=== PATIENT | female | born 1995 | race Caucasian/White ===

== ENCOUNTER 2021-01-16 18:12 | Emergency (ER) | payer MEDICAID, SELFPAY ==
--- NOTE | 2021-01-16 | ECG_ITS ---
Test Reason : UPPER RESPIRATORY Blood Pressure : / mmHG Vent. Rate : 066 BPM Atrial Rate : 066 BPM P-R Int : 170 ms QRS Dur : 084 ms QT Int : 394 ms P-R-T Axes : 078 058 069 degrees QTc Int : 413 ms Normal sinus rhythm Normal ECG No previous ECGs available Referred By: David Newton Electronically Signed By:RUBÉN LOGAN MD
--- NOTE | ~2021-01-16 | XR_ITS ---
EXAMINATION: XR CHEST CLINICAL INFORMATION: Chest pain COMPARISON: Chest x-ray March 21, 2018 TECHNIQUE: Frontal portable view of the chest was obtained. 2115 hours FINDINGS: No significant abnormality is noted involving the heart, lungs, mediastinum, bony thorax or soft tissues. XR/XR chest 1V IMPRESSION: Unremarkable examination.
--- NOTE | 2021-01-16 19:15 | PC.NURSE ---
NO RESPONSE WHEN CALLED AT 19:17
[2021-01-16 19:27] VITALS: BP 117/70; PULSE 87; RESP 17; TEMP 36.9; O2SAT 100; BMI 19.1
[2021-01-16 20:05] LABS: COVID-19 Test Negative (Negative)
--- NOTE | 2021-01-16 20:09 | ED_ITS ---
HPI - General Adult General Chief complaint: General Medical Stated complaint: cp, vomitting Time Seen by Provider: 01/16/21 19:46 Source: patient Mode of arrival: ambulatory Limitations: no limitations History of Present Illness HPI narrative: This is a 25 years old female presented to the emergency department with chief complaint of chest pain the pain is pleuritic worse taking a deep breath Onset (ago): day(s) (2) Radiation: non-radiation Severity: mild Pain Consistency: constant Exacerbating factors: other (breathing) Related Data Allergies Allergy/AdvReac Type Severity Reaction Status Date / Time No Known Allergies Allergy Unverified 12/08/19 18:51 [No Known Allergies*] Review of Systems Review of Systems: Yes all other systems are reviewed and are negative Eyes: Eyes: Reports no additional eye complaints Cardiovascular: Cardiovascular: Reports no additional cardiovascular complaints Respiratory: Respiratory: Reports no additional respiratory complaints Gastrointestinal: Gastrointestinal: Reports no additional gastrointestinal complaints Musculoskeletal: Musculoskeletal: Reports no additional musculoskeletal complaints PMFSH Past Medical History Attestation statement: The following information was validated with the patient. Source: unable to obtain Social History Social History Advance Directives: No Patient : No Physical Exam Vital Signs: Vital Signs: Last Vital Signs Temp 98.5 F 01/16/21 19: Pulse 87 01/16/21 19:27 Resp 17 01/16/21 19:27 BP 117/70 01/16/21 19:27 Pulse Ox 100 01/16/21 19:27 Body Mass Index 19.1 Const: General: cooperative, healthy appearing, no acute distress, well developed, awake and Physically active Nutritional Appearance: average body habitus Orientation/consciousness: oriented to person HENMT: Head: Yes normal to inspection Face and sinus: Yes normal facial exam Mouth: Normal oral and palatal mucosa present Teeth and gingiva: dentition normal Throat: Yes posterior oropharynx normal Neck: Neck: Yes normal visual inspection, Yes full ROM and Yes no lymphadenopathy Thyroid: Thyroid normal Chest: Chest palpation & inspection: normal inspection of the chest Resp: Effort & Inspection: normal respiratory effort and able to speak in complete sentences Auscultation: clear to auscultation bilaterally Cardio: Palpation: normal PMI Rate: regular rate Rhythm: regular rhythm GI: Inspection: Yes normal to inspection Palpation (GI): Soft to palpation, not firm, nontender, no guarding and not rigid Skin: General skin exam: no rashes or lesions noted, elasticity normal, turgor normal and atrophy Lesions: no lesions Rashes: no rashes Neuro: General: oriented to person Medical Decision Making Lab Data Result diagrams: 01/16/21 20:20 01/16/21 20:20 Labs: Lab Results 01/16/21 01/16/21 01/16/21 Range/Units 19:40 20:20 20:20 WBC 9.5 (4.8-10.8) X10*3/uL RBC 4.10 L (4.20-5.50) X10*6/uL Hgb 12.8 (12.0-16.0) g/dl Hct 38.0 (37-47) % MCV 92.7 (80-98) fL MCH 31.2 (27.0-33.0) pg MCHC 33.7 (31.0-35.0) g/dl RDW 12.0 (11.0-16.0) % Plt Count 335 (160-400) X10*3/uL MPV 10.0 (9.4-12.3) fL Immature Gran % (Auto) 0.2 (0.0-0.4) % Neut % (Auto) 64.4 (45-73) % Lymph % (Auto) 26.1 (20-40) % [place] % (Auto) 6.9 (2-11) % Eos % (Auto) 1.9 (0-4) % Baso % (Auto) 0.5 (0-2) % Lymph # (Auto) 2.5 (1.2-4.9) X10*3/uL [place] # (Auto) 0.7 (0.1-1.2) X10*3/uL Eos # (Auto) 0.2 (0.0-0.4) X10*3/uL Baso # (Auto) 0.1 (0.0-0.2) X10*3/uL Abs Immat Gran (auto) 0.02 (0.00-0.03) X10*3/uL Absolute Neuts (auto) 6.1 (2.0-8.3) X10*3/uL Absolute Nucleated RBC 0.000 (0.0-0.012) X10*3/uL Nucleated RBC % (auto) 0.0 (0.0-0.2) /100WBC D-Dimer < 200 NG/ML Sodium (135-145) mmol/L Potassium (3.3-5.1) mmol/L Chloride (96-108) mmol/L Carbon Dioxide (22-29) mmol/L Anion Gap (12-20) BUN (9-16) mg/dL Creatinine (0.5-1.4) mg/dL Estim Creat Clear Calc Estimated GFR Random Glucose (60-115) mg/dL Calcium (8.4-10.2) mg/dL Total Bilirubin (0.0-1.0) mg/dL AST (5-31) U/L ALT (0-31) U/L Alkaline Phosphatase (39-117) U/L Troponin I High Sens (<3.5-17.0) ng/L Total Protein (6.5-8.0) g/dL Albumin (3.5-5.0) g/dL COVID-19 ([facility]) Negative (Negative) COVID-19 Clin Com See Note 01/16/21 01/16/21 Range/Units 20:20 20:20 WBC (4.8-10.8) X10*3/uL RBC (4.20-5.50) X10*6/uL Hgb (12.0-16.0) g/dl Hct (37-47) % MCV (80-98) fL MCH (27.0-33.0) pg MCHC (31.0-35.0) g/dl RDW (11.0-16.0) % Plt Count (160-400) X10*3/uL MPV (9.4-12.3) fL Immature Gran % (Auto) (0.0-0.4) % Neut % (Auto) (45-73) % Lymph % (Auto) (20-40) % [place] % (Auto) (2-11) % Eos % (Auto) (0-4) % Baso % (Auto) (0-2) % Lymph # (Auto) (1.2-4.9) X10*3/uL [place] # (Auto) (0.1-1.2) X10*3/uL Eos # (Auto) (0.0-0.4) X10*3/uL Baso # (Auto) (0.0-0.2) X10*3/uL Abs Immat Gran (auto) (0.00-0.03) X10*3/uL Absolute Neuts (auto) (2.0-8.3) X10*3/uL Absolute Nucleated RBC (0.0-0.012) X10*3/uL Nucleated RBC % (auto) (0.0-0.2) /100WBC D-Dimer NG/ML Sodium 138 (135-145) mmol/L Potassium 4.0 (3.3-5.1) mmol/L Chloride 106 (96-108) mmol/L Carbon Dioxide 23 (22-29) mmol/L Anion Gap 13 (12-20) BUN 8 L (9-16) mg/dL Creatinine 0.77 (0.5-1.4) mg/dL Estim Creat Clear Calc 77.7 Estimated GFR > 60 Random Glucose 80 (60-115) mg/dL Calcium 9.1 (8.4-10.2) mg/dL Total Bilirubin 0.9 (0.0-1.0) mg/dL AST 15 (5-31) U/L ALT 8 (0-31) U/L Alkaline Phosphatase 71 (39-117) U/L Troponin I High Sens < 3.5 (<3.5-17.0) ng/L Total Protein 7.2 (6.5-8.0) g/dL Albumin 4.3 (3.5-5.0) g/dL COVID-19 ([facility]) (Negative) COVID-19 Clin Com Imaging Data Chest x-ray: Radiologist's impression: [facility] [place] cc: Ori Daly MD~ EXAMINATION: XR CHEST CLINICAL INFORMATION: Chest pain COMPARISON: Chest x-ray March 21, 2018 TECHNIQUE: Frontal portable view of the chest was obtained. 2115 hours FINDINGS: No significant abnormality is noted involving the heart, lungs, mediastinum, bony thorax or soft tissues. XR/XR chest 1V IMPRESSION: Unremarkable examination. ? Dictated By: GISSELLE LANDERS MD Signed By: <Electronically signed by GISSELLE LANDERS MD in OV> 01/16/212131 DD/ 07 TD/TT:? Java Swing Developer ECG Data Attestation: I personally reviewed and interpreted this ECG as follows: Prior ECG tracings: available for review Pacemaker model: NSR 66 no ischemic changes Discharge Plan Discharge Clinical Impression: Chest pain Patient Disposition: Home, Self-Care Instructions: Chest Pain (ED) Additional Instructions: Please follow-up with your primary care physician the blood work was normal your chest x-ray was negative you chest pain is not cardiac Referrals: Ale Alvarez MD [Primary Care Provider] - 2 days Interventions: LWBS Worksheet Last Done: 01/16/21 18:57
[2021-01-16 20:24] LABS: MANUAL DIFF FLAG NO
[2021-01-16 20:27] LABS: Basophils Absolute Auto 0.1 X10*3/uL (0.0-0.2); Basophils Percent Auto 0.5 % (0-2); Eosinophils Absolute Auto 0.2 X10*3/uL (0.0-0.4); Eosinophils Percent Auto 1.9 % (0-4); Hemoglobin 12.8 g/dl (12.0-16.0); Imm Gran Abs Auto 0.02 X10*3/uL (0.00-0.03); Imm Gran Pct Auto 0.2 % (0.0-0.4); Lymphocytes Absolute Auto 2.5 X10*3/uL (1.2-4.9); Lymphocytes Percent Auto 26.1 % (20-40); Mean Corpuscular HGB Conc 33.7 g/dl (31.0-35.0); Mean Corpuscular Hemoglobin 31.2 pg (27.0-33.0); Mean Corpuscular Volume 92.7 fL (80-98); Monocytes Absolute Auto 0.7 X10*3/uL (0.1-1.2); Monocytes Percent Auto 6.9 % (2-11); Neutrophils Absolute Auto 6.1 X10*3/uL (2.0-8.3); Neutrophils Percent Auto 64.4 % (45-73); Platelet Count 335 X10*3/uL (160-400); White Blood Count 9.5 X10*3/uL (4.8-10.8)
[2021-01-16 20:37] LABS: D Dimer < 200 NG/ML
[2021-01-16 20:39] LABS: Alanine Aminotransferase 8 U/L (0-31); Albumin Level 4.3 g/dL (3.5-5.0); Alkaline Phosphatase 71 U/L (39-117); Anion Gap 13 (12-20); Aspartate Amino Transferase 15 U/L (5-31); Bilirubin Total 0.9 mg/dL (0.0-1.0); Blood Urea Nitrogen 8 mg/dL (9-16); Calcium 9.1 mg/dL (8.4-10.2); Carbon Dioxide 23 mmol/L (22-29); Chloride 106 mmol/L (96-108); Creatinine Clr Calc Pharmacy 77.7; Estimated Glomerular Filt Rate > 60; Glucose Random 80 mg/dL (60-115); Sodium 138 mmol/L (135-145); Total Protein 7.2 g/dL (6.5-8.0)
[2021-01-16 20:45] LABS: Troponin-I High Sensitivity < 3.5 ng/L (<3.5-17.0)
== END 2021-01-16 22:30 | disposition home or self-care (01) ==
PROVIDERS: Emergency Medicine; Emergency Provider Emergency Medicine; PCP Internal Medicine
DX: R07.9 Chest pain, unspecified (principal); Z20.822 Contact with and (suspected) exposure to COVID-19
CPT/HCPCS: 36415; 71045; 80053; 84484; 85025; 85379; 87635; 93005; 99283

== ENCOUNTER 2022-03-21 17:54 | Emergency (ER) | payer MEDICAID, SELFPAY ==
[2022-03-21 19:40] VITALS: BP 101/39; PULSE 79; RESP 20; TEMP 36.6; O2SAT 99; BMI 18.7
--- NOTE | 2022-03-21 19:41 | ED.SKABFB ---
HPI - Skin/Abscess/Foreign Bdy General Chief complaint: Skin/Abscess/Foreign Body <Tawana Lopez CNP - Last Filed: 03/25/22 18:13> Stated complaint: abdominal pain <Tawana Lopez CNP - Last Filed: 03/25/22 18:13> Time Seen by Provider: 03/22/22 01:31 <Tawana Lopez CNP - Last Filed: 03/25/22 18:13> Source: patient <Dipesh Alcala MD - Last Filed: 03/26/22 01:35> Mode of arrival: ambulatory <Dipesh Alcala MD - Last Filed: 03/26/22 01:35> Limitations: no limitations <Dipesh Alcala MD - Last Filed: 03/26/22 01:35> History of Present Illness HPI narrative: Not work drainage in a clinical <Dipesh Alcala MD - Last Filed: 03/26/22 01:35> Related Data Home medications: Previous Rx's Medication Instructions Recorded cefuroxime axetil 500 mg tablet 500 mg PO BID #20 tabs 03/22/22 doxycycline hyclate 100 mg tablet 100 mg PO BID #20 tabs 03/22/22 fluconazole 150 mg tablet 150 mg PO Q3D 2 doses #2 tabs 03/24/22 (Diflucan) metronidazole 500 mg tablet 500 mg PO BID 7 days #14 tabs 03/24/22 <Tawana Lopez CNP - Last Filed: 03/25/22 18:13> Allergies/Adverse reactions: Allergies Allergy/AdvReac Type Severity Reaction Status Date / Time No Known Allergies Allergy Verified 03/21/22 19:45 [No Known Allergies*] <Tawana Lopez CNP - Last Filed: 03/25/22 18:13> PMFSH Social History Social History: Social History Alcohol intake: current Alcohol intake frequency: holidays/special occasions only Smoked in Last 30 Days: No Use of substances other than those prescribed or required for medical reasons: No Advance Directives: No Advance Directives Information Provided: No Patient : No <Tawana Lopez CNP - Last Filed: 03/25/22 18:13> Physical Exam Vital Signs: Vital Signs: Last Vital Signs Temp 98.2 F 03/22/22 01:04 Pulse 61 03/22/22 01:04 Resp 18 03/22/22 01:04 BP 99/55 L 03/22/22 01:04 Pulse Ox 99 03/22/22 01:04 O2 Del Method 03/22/22 01:04 BMI result Body Mass Index 18.7 <Tawana Lopez CNP - Last Filed: 03/25/22 18:13> Vital Signs: Last Vital Signs Temp 98.2 F 03/22/22 01:04 Pulse 61 03/22/22 01:04 Resp 18 03/22/22 01:04 BP 99/55 L 03/22/22 01:04 Pulse Ox 99 03/22/22 01:04 O2 Del Method 03/22/22 01:04 BMI result Body Mass Index 18.7 <Dipesh Alcala MD - Last Filed: 03/26/22 01:35> Course Course Course Narrative: This is an RME: Additional HPI, ROS, PE not included below will be deferred to primary provider. Patient is a 26-year-old female who presents emergency department for evaluation of cyst to the bilateral buttock with onset approximately 1 week ago. States that one of them opened yesterday and drain, the other has not had drained, they are painful. Reports a history of abscesses requiring incision and drainage in the past. Also reporting vaginal itching and discomfort since this morning. Denies dysuria, possibility of . Recent new sexual parnet 3 weeks ago. Plan: Will require ct/ng, urinalysis, urine , bacterial vaginosis panel, and examination <Tawana Lopez CNP - Last Filed: 03/25/22 18:13> Medications Administered Discontinued Medications Generic Name Dose Route Start Last Admin Trade Name Freq PRN Reason Stop Dose Admin Cefuroxime Axetil 500 mg 03/22/22 01:32 03/22/22 01:51 Cefuroxime Axetil 250 Mg Tablet PO 03/22/22 01:33 500 mg ONCE ONE Administration Doxycycline Monohydrate 100 mg 03/22/22 01:44 03/22/22 01:51 Doxycycline Monohydrate 100 Mg Capsule PO 03/22/22 01:45 100 mg ONCE ONE Administration <Tawana Lopez CNP - Last Filed: 03/25/22 18:13> Medications Administered Discontinued Medications Generic Name Dose Route Start Last Admin Trade Name Daryl PRN Reason Stop Dose Admin Cefuroxime Axetil 500 mg 03/22/22 01:32 03/22/22 01:51 Cefuroxime Axetil 250 Mg Tablet PO 03/22/22 01:33 500 mg ONCE ONE Administration Doxycycline Monohydrate 100 mg 03/22/22 01:44 03/22/22 01:51 Doxycycline Monohydrate 100 Mg Capsule PO 03/22/22 01:45 100 mg ONCE ONE Administration <Dipesh Alcala MD - Last Filed: 03/26/22 01:35> Medical Decision Making Lab Data Labs: Lab Results 03/21/22 03/21/22 03/21/22 Range/Units 20:09 20:09 20:09 Urine Color Yellow Urine Appearance Turbid Urine pH 6.0 (5.0-9.0) Ur Specific [place] 1.010 (1.005-1.025) Urine Protein Negative (Neg-Trace) mg/dL Urine Glucose (UA) Negative (Negative) mg/dL Urine Ketones Negative (Negative) mg/dL Urine Blood Trace H (Negative) Urine Nitrite Negative (Negative) Ur Leukocyte Esterase Large (3+) H (Negative) Urine RBC 3-5 H (0-2) /HPF Urine WBC 21-50 H (0-5) /HPF Ur Squamous Epith Cells >20 (0-2) /HPF Urine Bacteria 4+ (None Seen) Hyaline Casts 0-2 (0-2) /LPF Urine Test NEGATIVE (NEGATIVE) Azra species DNA (Negative) Chlam trachomat DNA PCR DETECTED A (Not Detect.) [place] DNA Probe (Negative) N.gonorrhoeae DNA (PCR) NOT DETECTED (Not Detect.) Trichomonas DNA Probe (Negative) 03/21/22 Range/Units 20:09 Urine Color Urine Appearance Urine pH (5.0-9.0) Ur Specific [place] (1.005-1.025) Urine Protein (Neg-Trace) mg/dL Urine Glucose (UA) (Negative) mg/dL Urine Ketones (Negative) mg/dL Urine Blood (Negative) Urine Nitrite (Negative) Ur Leukocyte Esterase (Negative) Urine RBC (0-2) /HPF Urine WBC (0-5) /HPF Ur Squamous Epith Cells (0-2) /HPF Urine Bacteria (None Seen) Hyaline Casts (0-2) /LPF Urine Test (NEGATIVE) Azra species DNA Positive A (Negative) Chlam trachomat DNA PCR (Not Detect.) Gardnerella DNA Probe Positive A (Negative) N.gonorrhoeae DNA (PCR) (Not Detect.) Trichomonas DNA Probe Negative (Negative) <Tawana Lopez, KEILA - Last Filed: 03/25/22 18:13> Lab Results 03/21/22 03/21/22 03/21/22 Range/Units 20:09 20:09 20:09 Urine Color Yellow Urine Appearance Turbid Urine pH 6.0 (5.0-9.0) Ur Specific [place] 1.010 (1.005-1.025) Urine Protein Negative (Neg-Trace) mg/dL Urine Glucose (UA) Negative (Negative) mg/dL Urine Ketones Negative (Negative) mg/dL Urine Blood Trace H (Negative) Urine Nitrite Negative (Negative) Ur Leukocyte Esterase Large (3+) H (Negative) Urine RBC 3-5 H (0-2) /HPF Urine WBC 21-50 H (0-5) /HPF Ur Squamous Epith Cells >20 (0-2) /HPF Urine Bacteria 4+ (None Seen) Hyaline Casts 0-2 (0-2) /LPF Urine Test NEGATIVE (NEGATIVE) Azra species DNA (Negative) Chlam trachomat DNA PCR DETECTED A (Not Detect.) [place] DNA Probe (Negative) N.gonorrhoeae DNA (PCR) NOT DETECTED (Not Detect.) Trichomonas DNA Probe (Negative) 03/21/22 Range/Units 20:09 Urine Color Urine Appearance Urine pH (5.0-9.0) Ur Specific [place] (1.005-1.025) Urine Protein (Neg-Trace) mg/dL Urine Glucose (UA) (Negative) mg/dL Urine Ketones (Negative) mg/dL Urine Blood (Negative) Urine Nitrite (Negative) Ur Leukocyte Esterase (Negative) Urine RBC (0-2) /HPF Urine WBC (0-5) /HPF Ur Squamous Epith Cells (0-2) /HPF Urine Bacteria (None Seen) Hyaline Casts (0-2) /LPF Urine Test (NEGATIVE) Arza species DNA Positive A (Negative) Chlam trachomat DNA PCR (Not Detect.) [place] DNA Probe Positive A (Negative) N.gonorrhoeae DNA (PCR) (Not Detect.) Trichomonas DNA Probe Negative (Negative) <Dipesh Alcala MD - Last Filed: 03/26/22 01:35> Discharge Plan Discharge Clinical Impression: Abscess of skin or subcutaneous tissue, UTI (urinary tract infection) <Tawana Lopez CNP - Last Filed: 03/25/22 18:13> Patient Disposition: Home, Self-Care <Tawana Lopez CNP - Last Filed: 03/25/22 18:13> Instructions: Urinary Tract Infection in Women (ED), Abscess (ED) <Tawana Lopez CNP - Last Filed: 03/25/22 18:13> Additional Instructions: Take antibiotic as prescribed Report to ER if increased in the size of the abscess At this time size of abscess is very small and does not need incision and drainage <Tawana Lopez CNP - Last Filed: 03/25/22 18:13> Prescriptions: New cefuroxime axetil 500 mg tablet 500 mg PO BID Qty: 20 0RF doxycycline hyclate 100 mg tablet 100 mg PO BID Qty: 20 0RF metronidazole 500 mg tablet 500 mg PO BID 7 Days Qty: 14 0RF fluconazole [Diflucan] 150 mg tablet 150 mg PO Q3D Qty: 2 0RF Rx Instructions: may repeat second dose 72 hrs after first dose if symptoms persist <Tawana Lopez CNP - Last Filed: 03/25/22 18:13> Interventions: ED Discharge Assessment Last Done: 03/22/22 02:04 <Tawana Lopez CNP - Last Filed: 03/25/22 18:13> Discharge Date/Time: 03/22/22 02:05 <Tawana Lopez CNP - Last Filed: 03/25/22 18:13>
[2022-03-21 20:18] LABS: Appearance Urine Turbid; Color Urine Yellow; Glucose Urine UA Negative (Negative); Leukocyte Esterase Urine Large (3+) (Negative); Nitrite Urine Negative (Negative); UMIC TRIGGER UACC YES; Urine Blood Trace (Negative); Urine Ketones Negative (Negative); Urine Protein Negative (Neg-Trace)
[2022-03-21 20:19] LABS: Urine Pregnancy NEGATIVE (NEGATIVE)
[2022-03-21 20:20] LABS: UPreg QC Valid YES
[2022-03-21 20:34] LABS: Bacteria Urine 4+ (None Seen); Hyaline Casts Urine 0-2 /LPF (0-2); Squamous Epithelial Cell Urine >20 /HPF (0-2); UACC Culture Trigger YES; WBC Urine 21-50 /HPF (0-5)
[2022-03-22 01:04] VITALS: BP 99/55; PULSE 61; RESP 18; TEMP 36.8; O2SAT 99
--- NOTE | 2022-03-22 01:49 | ED.SKABFB ---
HPI - Skin/Abscess/Foreign Bdy General Chief complaint: Skin/Abscess/Foreign Body Stated complaint: abdominal pain Time Seen by Provider: 03/22/22 01:31 Source: patient Mode of arrival: ambulatory Limitations: no limitations History of Present Illness HPI narrative: Patient complaining of recurrent small abscesses in the gluteal area this time started about 1 week ago also since morning noticed discomfort in vagina without any discharge also denied any urinary complaints no frequency/dysuria no fever or chills Related Data Previous Rx's Medication Instructions Recorded cefuroxime axetil 500 mg tablet 500 mg PO BID #20 tabs 03/22/22 doxycycline hyclate 100 mg tablet 100 mg PO BID #20 tabs 03/22/22 Allergies Allergy/AdvReac Type Severity Reaction Status Date / Time No Known Allergies Allergy Verified 03/21/22 19:45 [No Known Allergies*] Review of Systems Review of Systems: Yes all other systems are reviewed and are negative [facility] Social History Social History Alcohol intake: current Alcohol intake frequency: holidays/special occasions only Smoked in Last 30 Days: No Use of substances other than those prescribed or required for medical reasons: No Advance Directives: No Advance Directives Information Provided: No Patient : No Physical Exam Vital Signs: Vital Signs: Last Vital Signs Temp 98.2 F 03/22/22 01:04 Pulse 61 03/22/22 01:04 Resp 18 03/22/22 01:04 BP 99/55 L 03/22/22 01:04 Pulse Ox 99 03/22/22 01:04 O2 Del Method 03/22/22 01:04 BMI result Body Mass Index 18.7 Appearance: Alert. Oriented X3. No acute distress. ENT: Pharynx normal. Oral Mucosa moist Neck: Normal inspection. Neck supple. CVS: Normal heart rate and rhythm. Pulses normal. Respiratory: No respiratory distress. Equal air entry bilateral, no wheezing/rales/rhonchi abd: Soft nontender no CVA tenderness as palpable Skin: Skin warm and dry. Normal skin color. Small 0.5 x 0.5 cm abscess in the right gluteal area clinically MRSA Extremities: No lower extremity edema. Neuro: Oriented X 3. Medical Decision Making Medical Decision Making MDM Narrative: Patient with staph abscesses very small in size discharge patient home on doxycycline also patient has UTI will give her Ceftin sample for GC chlamydia was taken Lab Data MDM Lab Attestation statement: I reviewed the patient's lab results. Labs: Lab Results 03/21/22 03/21/22 Range/Units 20:09 20:09 Urine Color Yellow Urine Appearance Turbid Urine pH 6.0 (5.0-9.0) Ur Specific [place] 1.010 (1.005-1.025) Urine Protein Negative (Neg-Trace) mg/dL Urine Glucose (UA) Negative (Negative) mg/dL Urine Ketones Negative (Negative) mg/dL Urine Blood Trace H (Negative) Urine Nitrite Negative (Negative) Ur Leukocyte Esterase Large (3+) H (Negative) Urine RBC 3-5 H (0-2) /HPF Urine WBC 21-50 H (0-5) /HPF Ur Squamous Epith Cells >20 (0-2) /HPF Urine Bacteria 4+ (None Seen) Hyaline Casts 0-2 (0-2) /LPF Urine Test NEGATIVE (NEGATIVE) Discharge Plan Discharge Clinical Impression: Abscess of skin or subcutaneous tissue, UTI (urinary tract infection) Patient Disposition: Home, Self-Care Instructions: Urinary Tract Infection in Women (ED), Abscess (ED) Additional Instructions: Take antibiotic as prescribed Report to ER if increased in the size of the abscess At this time size of abscess is very small and does not need incision and drainage Prescriptions: New cefuroxime axetil 500 mg tablet 500 mg PO BID Qty: 20 0RF doxycycline hyclate 100 mg tablet 100 mg PO BID Qty: 20 0RF
[2022-03-22] MEDS: Doxycycline Monohydrate 100 MG CAPSULE PO (01:51)
[2022-03-22 10:19] LABS: CT PCR DETECTED (Not Detect.); NG PCR NOT DETECTED (Not Detect.)
[2022-03-22 14:33] LABS: BV Int Neg Control Negative (Negative); BV Int Pos Control Positive (Positive)
== END 2022-03-22 02:05 | disposition home or self-care (01) ==
PROVIDERS: Nurse Practitioner Family; Emergency Provider Internal Medicine
DX: L02.31 Cutaneous abscess of buttock (principal); N39.0 Urinary tract infection, site not specified; N89.8 Other specified noninflammatory disorders of vagina; Z79.899 Other long term (current) drug therapy
CPT/HCPCS: 81001; 81025; 87086; 87088; 87480; 87491; 87510; 87591; 87660; 99283; 99284

== ENCOUNTER 2022-10-08 12:38 | Outpatient (REF) | payer MEDICAID, SELFPAY ==
[2022-10-09 13:56] LABS: CT PCR NOT DETECTED (Not Detect.); NG PCR NOT DETECTED (Not Detect.)
== END 2022-10-08 12:39 | disposition home or self-care (01) ==
LOC: HO.HHCL 12:38
PROVIDERS: Visit Provider Internal Medicine
DX: N30.01 Acute cystitis with hematuria (principal); Z20.2 Contact with and (suspected) exposure to infections with a predominantly sexual mode of transmission
CPT/HCPCS: 0353U; 87086

== ENCOUNTER 2023-01-31 15:54 | Emergency (ER) | payer MEDICAID, SELFPAY ==
[2023-01-31 16:05] VITALS: BP 103/62; PULSE 81; RESP 18; TEMP 36.2; O2SAT 100; BMI 20.2
--- OUTSIDE RECORDS SUMMARY | 2023-01-31 18:03 | XMS_ITS | Continuity of Care Document ---
Author Name Unknown Organization [facility] Address [address] [place] [id number] Care Team Providers Care Drapery Counselor Name Role Phone Kim ABERNATHY, Ale Cary Primary Care Physician Encounter [facility] [place] Date(s): 06/10/21 - 07/10/[address] [id number]- Allergies, Adverse Reactions, Alerts No Known Medication Allergies Immunizations Given and Recorded Vaccine Date Status Refusal Reason SARS-CoV-2 (COVID-19) mRNA BNT-162b2 vac 11/07/20 Recorded SARS-CoV-2 (COVID-19) mRNA BNT-162b2 vac 10/17/20 Recorded Measles/Mumps/Rubella Virus Vaccine 10/05/19 Recor ded tetanus/diphtheria/pertussis, acel(Tdap) 07/25/16 Recorded influenza virus vaccine, inactivated 05/10/15 Guicho rded Medications Folic Acid Daily, 0 Refills, Maintenance, 03/11/21 14:07:00 EST, Partial fill upon patient request if the prescription is for a schedule II opioid drug. Start Date: 03/11/21 Status: Ordered Macrobid = 100 mg, By Mouth, 2 times a day, 0 Refills, Maintenance, 08/06/16 14:44:34 Start Date: 08/06/16 Stop Date: 08/09/16 Status: Ordered Miconazole 7 vaginal cream with applicator 1 application, Vaginally, Daily at bedtime, Acute, # 45 Gm, 0 Refills, Maintenance, 03/12/21 14:27:00 EST, Partial fill upon patient request if the prescription is for a schedule II opioid drug. Start Date: 03/12/21 Status: Ordered Multivitamins with Folic Acid 1 mg oral tablet 1 tablet, By Mouth, Daily, # 90 tablet, 3 Refills, Maintenance, 05/02/21 15:59:00 EST, Tablet, [facility]/pharmacy #[id number], Partial fill upon patient request if the prescription is for a schedule II opioid drug., 1 tablet By Mouth Daily, 152, cm, 04/04/21 18:3... Start Date: 05/02/21 Status: Ordered Problem List Condition Effective Dates Status Health Status Inform ant History of (Confirmed) Active Migraines(Confirmed) Active Social History Social History Type Response Smoking Status Never (less than 100 in lifetime) entered on: 02/25/21 Sex
--- OUTSIDE RECORDS SUMMARY | 2023-01-31 18:03 | XMS_ITS | Continuity of Care Document ---
Author Name Unknown Organization [facility] Address [address] [place] [phone]- Care Team Providers Care Collar Closer Lockstitch Name Role Phone Kim ABERNATHY, Ale Cary Primary Care Physician Encounter [facility] [place] Date(s): 11/04/21 - 12/15/[address] [address]- Attending Physician: Not on Staff, Attending MD Allergies, Adverse Reactions, Alerts No Known Medication Allergies Immunizations Given and Recorded Vaccine Date Status Refusal Reason tetanus/diphtheria/pertussis, acel(Tdap) 07/22/21 Given tetanus/diphtheria/pertussis, acel(Tdap) 07/25/16 Recorded SARS-CoV-2 mRNA (iujidfo-kbge-tmkda) vax 07/22/21 Given influenza virus vaccine, inactivated 07/22/21 Give n influenza virus vaccine, inactivated 05/10/15 Guicho rded SARS-CoV-2 (COVID-19) mRNA BNT-162b2 vac 11/07/20 Recorded SARS-CoV-2 (COVID-19) mRNA BNT-162b2 vac 10/17/20 Recorded Measles/Mumps/Rubella Virus Vaccine 10/05/19 Recor ded Medications acetaminophen 325 mg oral tablet 650 mg, By Mouth, Every 4 hours, (1-3), may give 325mg per patient preference and re-dose with 325mg within 4 hours if needed. Patient should only receive a total of 650mg of Acetaminophen every 4 hours., # 60 tablet, Refills 0, Tot. Refills 0, Main... Start Date: 09/29/21 Status: Ordered Colace sodium 100 mg oral capsule 100 mg, 1, capsule, By Mouth, 2 times a day, PRN, # 100 capsule, Refills 0, Tot. Refills 0, Maintenance, for constipation, 07/22/21 11:19:00 EDT, Route to Pharmacy Electronically, [id number],Partial fill upon patient request if the prescripti... Start Date: 07/22/21 Status: Ordered ferrous sulfate 325 mg oral tablet 1 tablet = 325 mg, By Mouth, Daily, # 90 tablet, 3 Refills, Maintenance, 07/24/21 21:38:00 EDT, Tablet, [id number], Partial fill upon patient request if the prescription is for a schedule II opioid drug., 152, cm, 07/22/21 15:06:00 EDT, Height... Start Date: 07/24/21 Status: Ordered ibuprofen 800 mg oral tablet 800 mg, 1, tablet, By Mouth, Every 8 hours, (4-6), may give 400mg per patient preference and re-dose with 400mg within 8 hours if needed. Patient should only receive a total of 800mg of Ibuprofen every 8 hours., # 60 tablet, Refills 0, Tot. Refills... Start Date: 09/29/21 Status: Ordered oxyCODONE 5 mg oral tablet 5 mg, 1, tablet, By Mouth, Every 3 hours, PRN, (7-10), # 5 tablet, Refills 0, Tot. Refills 0, Maintenance, Pain , Severe, 09/29/21 9:20:00 EDT, Route to Pharmacy Electronically, [id number], Partial fill upon patient request if the prescription... Start Date: 09/29/21 Status: Ordered Multivitamins with Folic Acid 1 mg oral tablet 1 tablet, By Mouth, Daily, # 90 tablet, 3 Refills, Maintenance, 05/02/21 15:59:00 EST, Tablet, [id number], Partial fill upon patient request if the prescription is for a schedule II opioid drug., 1 tablet By Mouth Daily, 152, cm, 04/04/21 18:3... Start Date: 05/02/21 Status: Ordered Problem List Condition Effective Dates Status Health Status Inform ant History of (Confirmed) Active Migraines(Confirmed) Active Social History Social History Type Response Smoking Status Never (less than 100 in lifetime) entered on: 02/25/21 Sex Care Team Personnel Name: Kim ABERNATHY, Ale Cary Address: [address] [place] [address]-
--- OUTSIDE RECORDS SUMMARY | 2023-01-31 18:03 | XMS_ITS | Continuity of Care Document ---
Author Name Unknown Organization [facility] Address [address] [place] [address]- Care Team Providers Care Alterations Workroom Clerk Name Role Phone Kim ABERNATHY, Ale Cary Primary Care Physician Encounter [facility] [place] Date(s): 08/01/21 - 10/12/[address] [address] Attending Physician: Not on Staff, Attending MD Allergies, Adverse Reactions, Alerts No Known Medication Allergies Immunizations Given and Recorded Vaccine Date Status Refusal Reason tetanus/diphtheria/pertussis, acel(Tdap) 07/22/21 Given tetanus/diphtheria/pertussis, acel(Tdap) 07/25/16 Recorded SARS-CoV-2 mRNA (cyfqsbf-qcif-psmos) vax 07/22/21 Given influenza virus vaccine, inactivated [...] 07/22/21 11:19:00 EDT, Route to Pharmacy Electronically, [facility]/pharmacy #[id number],Partial fill upon patient request if the [...] 09/29/21 9:20:00 EDT, Route to Pharmacy Electronically, [facility]/pharmacy #[id number], Partial fill upon patient request if [...]
--- OUTSIDE RECORDS SUMMARY | 2023-01-31 18:03 | XMS_ITS | Continuity of Care Document ---
Author Name Unknown Organization [facility] Address [address] [place] [address]- Care Team Providers Care Staple Side Laster Name Role Phone Kim ABERNATHY, Ale Cary Primary Care Physician Encounter [facility] [place] Date(s): 03/11/21 - 04/10/[address] [address] Allergies, Adverse Reactions, Alerts No Known Medication Allergies Immunizations Given and Recorded Vaccine Date Status Refusal Reason SARS-CoV-2 (COVID-19) mRNA BNT-162b2 vac 11/07/20 Recorded SARS-CoV-2 (COVID-19) mRNA BNT-162b2 vac 10/17/20 Recorded Measles/Mumps/Rubella Virus Vaccine 10/05/19 Recor ded tetanus/diphtheria/pertussis, acel(Tdap) 07/25/16 Recorded influenza virus vaccine, inactivated 05/10/15 Guicho rded Medications clotrimazole 1% vaginal cream with applicator 1 application, Vaginally, Daily at bedtime, for 7 days, # 45 Gm, 0 Refills, Acute 04/11/21 18:46:00EST, 04/04/21 18:46:00 EST, Cream, [id number], Partial fill upon patient request if the prescription is for a schedule II opioid drug., 1 appli... Start Date: 04/04/21 Stop Date: 04/11/21 Status: Ordered Folic Acid Daily, 0 Refills, Maintenance, 03/11/21 [...] Daily, # 90 tablet, 3 Refills, Maintenance, 02/25/21 13:44:00 EST, Tablet, Partial fill upon patient request if the prescription is for a schedule II opioid drug. Start Date: 02/25/21 Status: Ordered Social History Social History Type Response Smoking Status Never (less than 100 in lifetime) entered on: 02/25/21 Sex
--- OUTSIDE RECORDS SUMMARY | 2023-01-31 18:03 | XMS_ITS | Continuity of Care Document ---
Author Name Unknown Organization [facility] Address [address] [place] [address]- Care Team Providers Care Vegetable Grader Name Role Phone Kim ABERNATHY, Ale Cary Primary Care Physician Encounter [facility] [place] Date(s): 09/30/21 - 12/05/[address] [address]- Attending Physician: Not on Staff, Attending MD Allergies, Adverse Reactions, Alerts No Known Medication Allergies Immunizations Given and Recorded Vaccine Date Status Refusal Reason tetanus/diphtheria/pertussis, acel(Tdap) 07/22/21 Given tetanus/diphtheria/pertussis, acel(Tdap) 07/25/16 Recorded SARS-CoV-2 mRNA (ejhdzid-rtpn-pvejh) vax 07/22/21 Given influenza virus vaccine, inactivated [...] Personnel Name: Kim ABERNATHY, Ale Cary Address: [address] [place] [address]-
--- OUTSIDE RECORDS SUMMARY | 2023-01-31 18:03 | XMS_ITS | Continuity of Care Document ---
Author Name Unknown Organization [facility] Address [address] [place] [address]- Care Team Providers Care Fishing Rod Marker Name Role Phone Kim ABERNATHY, Ale Cary Primary Care Physician Encounter [facility] [place] Date(s): 08/01/21 - 11/03/[address] [address] Attending Physician: Not on Staff, Attending MD Allergies, Adverse Reactions, Alerts No Known Medication Allergies Immunizations Given and Recorded Vaccine Date Status Refusal Reason tetanus/diphtheria/pertussis, acel(Tdap) 07/22/21 Given tetanus/diphtheria/pertussis, acel(Tdap) 07/25/16 Recorded SARS-CoV-2 mRNA (enwrito-kzpv-ipjhc) vax 07/22/21 Given influenza virus vaccine, inactivated [...] 07/22/21 11:19:00 EDT, Route to Pharmacy Electronically, [facility] #[id number],Partial fill upon patient request if [...] 09/29/21 9:20:00 EDT, Route to Pharmacy Electronically, [facility]/pharmacy #[id number], Partial fill upon patient request [...]
--- OUTSIDE RECORDS SUMMARY | 2023-01-31 18:03 | XMS_ITS | Continuity of Care Document ---
Author Name Unknown Organization [facility] Address [address] [place] [address]- Care Team Providers Care Metal Hardener Name Role Phone Kim ABERNATHY, Ale Cary Primary Care Physician [place] [facility] [place] Date(s): 03/11/21 - 03/11/[address] [address] Discharge Disposition: A-D/C Home Attending Physician: Cecil Holland MD Admitting Physician: Cecil Holland MD Referring Physician: Cecil Holland MD Allergies, Adverse Reactions, Alerts No Known [...] Date: 08/06/16 Stop Date: 08/09/16 Status: Ordered Multivitamins with Folic Acid 1 mg oral tablet 1 tablet, By Mouth, Daily, # 90 tablet, 3 Refills, Maintenance, 02/25/21 13:44:00 EST, Tablet, Partial fill upon patient request if the prescription is for a schedule II opioid drug. Start Date: 02/25/21 Status: Ordered Vital Signs Most recent to oldest [Reference Range]: 1 Weight 44.3 kg (03/11/21 12:07 PM) Oxygen Saturation [94-100 %] 100 % (03/11/21 12:07 PM) Pulse Rate [55-90 bpm] 75 bpm (03/11/21 12:07 PM) Blood Pressure [90-138/55-84 mm Hg] 115/ 60mm Hg (03/11/21 12:07 PM) Respiratory Rate [16-30 br/min] 18 br/mi n (03/11/21 12:07 PM) Temperature [96.8-100.4 DegF] 98.3 DegF (03/11/21 12:07 PM) Mode of Delivery (Oxygen) Room air (03/11/21 12:07 PM) Blood pressure sites Arm, right 1 (03/11/21 12:07 PM) Temperature Route Oral (03/11/21 12:07 PM) Dry Weight 44.3 kg (03/11/21 12:07 PM) 1Result Comment: right upper arm measured 23cm Social History Social History Type Response Smoking Status Never (less than 100 in lifetime) entered on: 02/25/21 Sex
--- OUTSIDE RECORDS SUMMARY | 2023-01-31 18:04 | XMS_ITS | Continuity of Care Document ---
Author Name Unknown Organization [facility] Address Unknown Care Team Providers Care Inspector Eyeglass Name Role Phone Kim ABERNATHY, Ale Cary Primary Care Physician [place] [facility] 07[place]21 - 08/20/21 [facility] Allergies, Adverse Reactions, Alerts No Known Medication Allergies Immunizations Given and Recorded Vaccine Date Status Refusal Reason tetanus/diphtheria/pertussis, acel(Tdap) 07/22/21 Given tetanus/diphtheria/pertussis, acel(Tdap) 07/25/16 Recorded SARS-CoV-2 mRNA (ublczpe-vllx-qmqkp) vax 07/22/21 Given influenza virus vaccine, inactivated 07/22/21 Give n influenza virus vaccine, inactivated 05/10/15 Guicho rded SARS-CoV-2 (COVID-19) mRNA BNT-162b2 vac 11/07/20 Recorded SARS-CoV-2 (COVID-19) mRNA BNT-162b2 vac 10/17/20 Recorded Measles/Mumps/Rubella Virus Vaccine 10/05/19 Recor ded Medications Colace sodium 100 mg oral capsule 100 [...] mg, By Mouth, Daily, # 90 tablet, 0 Refills, Maintenance, 07/21/21 14:31:00 EDT, Tablet, [facility]/pharmacy #[id number], Partial fill upon patient request if the prescription is for a schedule II opioid drug., 152, cm, 06/27/21 18:32:00 EDT, Height... Start Date: 07/21/21 Stop Date: 10/19/21 Status: Ordered ferrous sulfate 325 mg oral tablet 1 tablet = 325 mg, By Mouth, Daily, # 90 tablet, 3 Refills, Maintenance, 07/24/21 21:38:00 EDT, Tablet, [facility]/pharmacy #[id number], Partial fill upon patient request if the prescription is for a schedule II opioid drug., 152, cm, 07/22/21 15:06:00 EDT, Height... Start Date: 07/24/21 Status: Ordered Folic Acid Daily, 0 Refills, Maintenance, 03/11/21 14:07:00 EST, Partial fill upon patient request if the prescription is for a schedule II opioid drug. Start Date: 03/11/21 Status: Ordered Multivitamins with Folic Acid 1 mg oral tablet 1 tablet, By Mouth, Daily, # 90 tablet, 3 Refills, Maintenance, 05/02/21 15:59:00 EST, Tablet, [facility]/pharmacy #[id number], [...] 100 in lifetime) entered on: 02/25/21 Sex Female
--- OUTSIDE RECORDS SUMMARY | 2023-01-31 18:04 | XMS_ITS | Continuity of Care Document ---
Author Name Unknown Organization [facility] Address [address], [address] [place] [address]- Care Team Providers Care Porcelain Enamel Installer Name Role Phone Kim ABERNATHY, Ale Cary Primary Care Physician [place] [facility]s): 10/02/21 - 11/01/21 [facility] [address] [place] [address]- Allergies, Adverse Reactions, Alerts No Known Medication Allergies Immunizations Given and Recorded Vaccine Date Status Refusal Reason tetanus/diphtheria/pertussis, acel(Tdap) 07/22/21 Given tetanus/diphtheria/pertussis, acel(Tdap) 07/25/16 Recorded SARS-CoV-2 mRNA (csqelze-kgua-pcdqc) vax 07/22/21 Given influenza virus vaccine, inactivated [...] 07/22/21 11:19:00 EDT, Route to Pharmacy Electronically, [facility]/pharmacy #[id number],Partial fill upon patient request if the prescripti... Start Date: 07/22/21 Status: Ordered ferrous sulfate 325 mg oral tablet 1 tablet = 325 mg, By Mouth, Daily, # 90 tablet, 3 Refills, Maintenance, 07/24/21 21:38:00 EDT, Tablet, [facility]/pharmacy #[id number], Partial fill upon patient request [...] 09/29/21 9:20:00 EDT, Route to Pharmacy Electronically, [facility]/pharmacy #[id number], Partial fill upon patient request [...]
--- OUTSIDE RECORDS SUMMARY | 2023-01-31 18:04 | XMS_ITS | Continuity of Care Document ---
Author Name Unknown Organization [facility] Address [address] [place] [address]- Care Team Providers Care Financial Sales Representative Name Role Phone Kim ABERNATHY, Ale Cary Primary Care Phys[id number] Date[facility] 02/25/21 - 04/28/[address] [address]- Attending Physician: Not on Staff, Attending MD Referring Physician: Not on Staff, Referring MD Allergies, Adverse Reactions, Alerts No Known [...]
--- OUTSIDE RECORDS SUMMARY | 2023-01-31 18:04 | XMS_ITS | Continuity of Care Document ---
Author Name Unknown Organization [facility] Address [address] [place] [address]- Care Team Providers Care Head Miller Name Role Phone Kim ABERNATHY, Ale Cary Primary Care Physician Encounter [facility] [place] Date(s): 09/27/21 - 09/29/[address] [address]- Discharge Disposition: A-D/C Home Attending Physician: Howie Coulter MD Admitting Physician: Howie Coulter MD Referring Physician: Howie Coulter MD Allergies, Adverse Reactions, Alerts No Known Medication Allergies Immunizations Given and Recorded Vaccine Date Status Refusal Reason tetanus/diphtheria/pertussis, acel(Tdap) 07/22/21 Given tetanus/diphtheria/pertussis, acel(Tdap) 07/25/16 Recorded SARS-CoV-2 mRNA (adwqwri-ffba-ysqom) vax 07/22/21 Given influenza virus vaccine, inactivated [...] 0, Main... Start Date: 09/29/21 Status: Ordered Acetaminophen Tablet 650 mg, Tablet, By Mouth, (1-3), may give 325mg per patient preference and re- dose with 325mg within 4 hours if needed. Patient should only receive a total of 650mg of Acetaminophen every 4 hours., 09/29/21 11:00:00 EDT Start Date: 09/29/21 Stop Date: 09/29/21 Status: Completed Colace sodium 100 mg oral capsule 100 mg, 1, capsule, By Mouth, 2 times a day, PRN, # 100 capsule, Refills 0, Tot. Refills 0, Maintenance, for constipation, 07/22/21 11:19:00 EDT, Route to Pharmacy Electronically, [facility]/pharmacy #[id number],Partial fill upon patient request if [...] 09/29/21 9:20:00 EDT, Route to Pharmacy Electronically, [facility]/pharmacy #[id number], Partial fill upon patient request if the prescription... Start Date: 09/29/21 Status: Ordered OxyCODONE IR Tablet 5 mg, Tablet, By Mouth, Every 3 hours, PRN for Pain , Severe, (7-10), Routine, 09/28/21 14:07:00 EDT Start Date: 09/28/21 Stop Date: 10/05/21 Status: Ordered Multivitamins with Folic Acid 1 [...] ant History of (Confirmed) Active Migraines(Confirmed) Active Procedures Procedure Date Related Diagnosis Body Site Status delivery only; 09/27/21 C ompleted Vital Signs Most recent to oldest [Reference Range]: 1 2 3 Height 152 cm (09/29/21 8:00 AM) 152 cm (09/28/21 9:00 PM) 152 cm (09/28/21 11:53 AM) Weight 50.7 kg (09/27/21 10:41 AM) Oxygen Saturation [94-100 %] 99 % (09/29/21 8:00 AM) 99 % (09/29/21 12:00 AM) 96 % (09/28/21 8:00 AM) Pulse Rate [55-90 bpm] 74 bpm (09/29/21 8:00 AM) 72 bpm (09/29/21 12:00 AM) 72 bpm (09/28/21 8:00 AM) Body Mass Index [18.5-24.99] 21.94 (09/27/21 10:41 AM) Blood Pressure [90-138/55-84 mm Hg] 111/69mm Hg (09/29/21 8:00 AM) 95/50mm Hg (09/29/21 12:00 AM) 102/59mm Hg (09/28/21 8:00 AM) Respiratory Rate [16-30 br/min] 18 br/min (09/29/21 2:11 PM) 18 br/min (09/29/21 1:21 PM) 18 br/min (09/29/21 1:21 PM) Temperature [96.8-100.4 DegF] 97.8 DegF (09/29/21 8:00 AM) 97.8 DegF (09/29/21 12:00 AM) 97.8 DegF (09/28/21 8:00 AM) Mode of Delivery (Oxygen) Room air (09/29/21 8:00 AM) Room air (09/29/21 12:00 AM) Room air (09/28/21 8:00 AM) Blood pressure sites Arm, left (09/29/21 8:00 AM) Arm, right (09/29/21 12:00 AM) Arm, right (09/28/21 8:00 AM) Temperature Route Oral (09/29/21 8:00 AM) Oral (09/29/21 12:00 AM) Oral (09/28/21 8:00 AM) Dry Weight 50.7 kg (09/27/21 10:41 AM) Social History Social History Type Response Smoking Status Never (less than 100 in lifetime) entered on: 02/25/21 Sex Female
--- OUTSIDE RECORDS SUMMARY | 2023-01-31 18:04 | XMS_ITS | Continuity of Care Document ---
Author Name Unknown Organization [facility] Address Unknown Care Team Providers Care Surgical Instrument Maker Name Role Phone Kim ABERNATHY, Ale Cary Primary Care Physician [place] [facility] [place] 08/23/21 [facility] Allergies, Adverse Reactions, Alerts No Known Medication Allergies Immunizations Given and Recorded Vaccine Date Status Refusal Reason tetanus/diphtheria/pertussis, acel(Tdap) 07/22/21 Given tetanus/diphtheria/pertussis, acel(Tdap) 07/25/16 Recorded SARS-CoV-2 mRNA (sfymgjo-fsih-dlzue) vax 07/22/21 Given influenza virus vaccine, inactivated [...] 07/22/21 11:19:00 EDT, Route to Pharmacy Electronically, [facility]/pharmacy #[id number],Partial fill upon patient request if the prescripti... Start Date: 07/22/21 Status: Ordered ferrous sulfate 325 mg oral tablet 1 tablet = 325 mg, By Mouth, Daily, # 90 tablet, 0 Refills, Maintenance, 07/21/21 14:31:00 EDT, Tablet, [facility]/pharmacy #[id number], Partial fill upon patient request if the prescription is for a schedule II opioid drug., 152, cm, 06/27/21 18:32:00 EDT, Height... Start Date: 07/21/21 Stop Date: 10/19/21 Status: Ordered ferrous sulfate 325 mg oral tablet 1 tablet = 325 mg, By Mouth, Daily, # 90 tablet, 3 Refills, Maintenance, 07/24/21 21:38:00 EDT, Tablet, [facility]/pharmacy #[id number], Partial fill upon patient [...] 3 Refills, Maintenance, 05/02/21 15:59:00 EST, Tablet, [facility]/pharmacy #[id number], Partial fill upon patient [...]
--- OUTSIDE RECORDS SUMMARY | 2023-01-31 18:04 | XMS_ITS | Continuity of Care Document ---
Author Name Unknown Organization [facility] Address [address] [place] [address]- Care Team Providers Care Obstetrics Gynecology Md Name Role Phone Kim ABERNATHY, Ale Cary Primary Care Physician Encounter [facility] [place] Date(s): 09/25/21 - 10/25/[address] [address]- Allergies, Adverse Reactions, Alerts No Known Medication Allergies Immunizations Given and Recorded Vaccine Date Status Refusal Reason tetanus/diphtheria/pertussis, acel(Tdap) 07/22/21 Given tetanus/diphtheria/pertussis, acel(Tdap) 07/25/16 Recorded SARS-CoV-2 mRNA (mqqocoi-jvqr-eyvqe) vax 07/22/21 Given influenza virus vaccine, inactivated [...] 07/22/21 11:19:00 EDT, Route to Pharmacy Electronically, [facility]/pharmacy #[id number],Partial fill upon patient request if the prescripti... Start Date: 07/22/21 Status: Ordered ferrous sulfate 325 mg oral tablet 1 tablet = 325 mg, By Mouth, Daily, # 90 tablet, 3 Refills, Maintenance, 07/24/21 21:38:00 EDT, Tablet, [facility]/pharmacy #[id number], Partial fill upon patient request if [...] 09/29/21 9:20:00 EDT, Route to Pharmacy Electronically, [facility]/pharmacy #[id number], Partial fill upon patient request if [...]
--- OUTSIDE RECORDS SUMMARY | 2023-01-31 18:04 | XMS_ITS | Continuity of Care Document ---
Author Name Unknown Organization [facility] Address [address] [place] [address]- Care Team Providers Care Oncology Physician Assistant Name Role Phone Kim ABERNATHY, Ale Cary Primary Care Physician Encounter [facility] [place] Date(s): 08/01/21 - 10/27/[address] [address] Attending Physician: Not on Staff, Attending MD Allergies, Adverse Reactions, Alerts No Known Medication Allergies Immunizations Given and Recorded Vaccine Date Status Refusal Reason tetanus/diphtheria/pertussis, acel(Tdap) 07/22/21 Given tetanus/diphtheria/pertussis, acel(Tdap) 07/25/16 Recorded SARS-CoV-2 mRNA (nyumkpn-jtvy-mwwur) vax 07/22/21 Given influenza virus vaccine, inactivated [...] 07/22/21 11:19:00 EDT, Route to Pharmacy Electronically, [facility]/pharmacy #[id number],Partial fill upon patient [...] 09/29/21 9:20:00 EDT, Route to Pharmacy Electronically, [facility]/pharmacy #[id number], Partial fill upon [...]
--- OUTSIDE RECORDS SUMMARY | 2023-01-31 18:04 | XMS_ITS | Continuity of Care Document ---
Author Name Unknown Organization [facility] Address [address] [place] [address]- Care Team Providers Care Laryngologist Name Role Phone Kim ABERNATHY, Ale Cary Primary Care Physician [place] [facility] [place] Date(s): 11/15/21 - 12/15/[address] [address]- Attending Physician: Lilli Gifford Admitting Physician: AdmtrLilli Referring Physician: AdmtrLilli Allergies, Adverse Reactions, Alerts No Known Medication Allergies Immunizations Given and Recorded Vaccine Date Status Refusal Reason tetanus/diphtheria/pertussis, acel(Tdap) 07/22/21 Given tetanus/diphtheria/pertussis, acel(Tdap) 07/25/16 Recorded SARS-CoV-2 mRNA (tchiqaz-tzmg-yaskc) vax 07/22/21 Given influenza virus vaccine, inactivated [...] 07/22/21 11:19:00 EDT, Route to Pharmacy Electronically, [facility]/pharmacy #[id number],Partial fill upon patient request if the prescripti... Start Date: 07/22/21 Status: Ordered ferrous sulfate 325 mg oral tablet 1 tablet = 325 mg, By Mouth, Daily, # 90 tablet, 3 Refills, Maintenance, 07/24/21 21:38:00 EDT, Tablet, [facility]/pharmacy #[id number], Partial fill upon [...] 09/29/21 9:20:00 EDT, Route to Pharmacy Electronically, [facility]/pharmacy #[id number], Partial fill upon [...] Personnel Name: Kim ABERNATHY, Ale Cary Address: [address] [place] [address]
--- OUTSIDE RECORDS SUMMARY | 2023-01-31 18:04 | XMS_ITS | Continuity of Care Document ---
Author Name Unknown Organization [facility] Address [address] [place] [id number]- Care Team Providers Care Clerical Specialist Name Role Phone Kim ABERNATHY, Ale Cary Primary Care Physician En[place] [facility] [place] Date(s): 08/01/21 - 11/10/[address] [address]- Attending Physician: Not on Staff, Attending MD Allergies, Adverse Reactions, Alerts No Known Medication Allergies Immunizations Given and Recorded Vaccine Date Status Refusal Reason tetanus/diphtheria/pertussis, acel(Tdap) 07/22/21 Given tetanus/diphtheria/pertussis, acel(Tdap) 07/25/16 Recorded SARS-CoV-2 mRNA ([id number]) vax 07/22/21 Given influenza virus vaccine, inactivated [...]
--- OUTSIDE RECORDS SUMMARY | 2023-01-31 18:04 | XMS_ITS | Continuity of Care Document ---
Author Name Unknown Organization [facility] Address [address] [place] [id number]- Care Team Providers Care Last Pattern Grader Name Role Phone Kim ABERNATHY, Ale Cary Primary Care Physician Encounter [facility] [place] Date(s): 02/07/21 - 03/09/[address] [address] Allergies, Adverse Reactions, Alerts No Known Medication Allergies Immunizations Given and Recorded Vaccine Date Status Refusal Reason SARS-CoV-2 (COVID-19) mRNA BNT-162b2 vac 11/07/20 Recorded SARS-CoV-2 (COVID-19) mRNA BNT-162b2 vac 10/17/20 Recorded Measles/Mumps/Rubella Virus Vaccine 10/05/19 Recor ded tetanus/diphtheria/pertussis, acel(Tdap) 07/25/16 Recorded influenza virus vaccine, inactivated 05/10/15 Guicho rded Medications Macrobid = 100 mg, By Mouth, 2 [...]
--- OUTSIDE RECORDS SUMMARY | 2023-01-31 18:04 | XMS_ITS | Continuity of Care Document ---
Author Name Unknown Organization [facility] Address [address] [place] [id number]- Care Team Providers Care Analysis Intern Name Role Phone Kim ABERNATHY, Ale Cary Primary Care Physician Encounter [facility] [place] Date(s): 10/02/21 - 11/01/[address] [address]- Allergies, Adverse Reactions, Alerts No Known Medication Allergies Immunizations Given and Recorded Vaccine Date Status Refusal Reason tetanus/diphtheria/pertussis, acel(Tdap) 07/22/21 Given tetanus/diphtheria/pertussis, acel(Tdap) 07/25/16 Recorded SARS-CoV-2 mRNA ([id number]) vax 07/22/21 Given influenza virus vaccine, inactivated [...] 11:19:00 EDT, Route to Pharmacy Electronically, [facility]/pharmacy #[id number],Partial fill upon patient request if the prescripti... Start Date: 07/22/21 Status: Ordered ferrous sulfate 325 mg oral tablet 1 tablet = 325 mg, By Mouth, Daily, # 90 tablet, 3 Refills, Maintenance, 07/24/21 21:38:00 EDT, Tablet, [facility]/pharmacy #[id number], Partial fill upon patient request if [...] 9:20:00 EDT, Route to Pharmacy Electronically, [facility]/pharmacy #[id number], Partial fill upon patient request if [...]
--- OUTSIDE RECORDS SUMMARY | 2023-01-31 18:04 | XMS_ITS | Continuity of Care Document ---
Author Name Unknown Organization [facility] Address [address] [place] [id number]- Care Team Providers Care Rn Night Name Role Phone Kim ABERNATHY, Ale Cary Primary Care Physician Encounter [facility] [place] Date(s): 02/25/21 - 03/27/[address] [address]- Attending Physician: Admtr, [id number] Admitting Physician: Admtr, [id number] Referring Physician: Admtr, Ar8 Allergies, Adverse Reactions, Alerts No Known Medication [...]
--- NOTE | 2023-01-31 18:09 | ED.SKABFB ---
HPI - Skin/Abscess/Foreign Bdy General Chief complaint: Skin/Abscess/Foreign Body Stated complaint: abd rash Time Seen by Provider: 01/31/23 18:09 Source: patient Mode of arrival: ambulatory Limitations: no limitations History of Present Illness HPI narrative: patient is a 27-year-old female presents emergency department for evaluation for rash. She states that 2 days ago she was in hospital visiting someone shortly occurs when she developed a rash to the left side of her abdomen that is moving towards her back and up to her breasts, also on the right side of the abdomen. It is pruritic. He denies fevers, chills, URI symptoms, sore throat, neck pain, neck stiffness. Related Data Previous Rx's Medication Instructions Recorded cefuroxime axetil 500 mg tablet 500 mg PO BID #20 tabs 03/22/22 doxycycline hyclate 100 mg tablet 100 mg PO BID #20 tabs 03/22/22 fluconazole 150 mg tablet 150 mg PO Q3D 2 doses #2 tabs 03/24/22 (Diflucan) metronidazole 500 mg tablet 500 mg PO BID 7 days #14 tabs 03/24/22 cetirizine 10 mg tablet 10 mg PO DAILY PRN angioedema #10 01/31/23 tabs fluocinolone 0.025 % topical cream 1 appl topical BID #60 grams 01/31/23 prednisone 10 mg tablet 10 mg PO DIRECTED #19 tabs 01/31/23 Allergies Allergy/AdvReac Type Severity Reaction Status Date / Time No Known Allergies Allergy Verified 03/21/22 19:45 [No Known Allergies*] Review of Systems Review of Systems: Yes all other systems are reviewed and are negative [facility] Past Medical History Attestation statement: The following information was validated with the patient. Source: old records reviewed Social History Social History Alcohol intake: current Alcohol intake frequency: holidays/special occasions only Advance Directives: No Advance Directives Information Provided: No Physical Exam Vital Signs: Vital Signs: Last Vital Signs Temp 97.1 F 01/31/23 16:05 Pulse 81 01/31/23 16:05 Resp 18 01/31/23 16:05 BP 103/62 01/31/23 16:05 Pulse Ox 100 01/31/23 16:05 O2 Del Method Room Air 01/31/23 16:05 BMI result Body Mass Index 20.2 Appearance: Alert.?Oriented to person, place and time. No acute distress.?Normal affect. Eyes: Pupils equal, round and reactive to light.? ENT: Pharynx normal.?? No angioedema Neck: Normal inspection.? Neck supple.?? CVS: Heart sounds normal. Normal heart rate and rhythm.? Pulses normal.?? Respiratory: No respiratory distress.? Lung sounds clear to auscultation bilaterally?? Abdomen: Soft and non-tender. Normoactive bowel sounds. Skin: Skin warm and dry.? Normal skin color.? pruritic circumcised raised erythematous plaques to the torso with varying shape size. Extremities: No lower extremity edema.? Neuro: Moves all extremities spontaneously. Sensation intact bilaterally. Ambulates with normal steady gait. Medical Decision Making Medical Decision Making MDM Narrative: patient is a 27-year-old female who presents emergency department for evaluation of a pruritic rash to the torso as per HPI. Physical examination most consistent with urticaria, at this time appears idiopathic in nature, denies new foods, soaps, lotions, detergents, clothing, medications would brought this on. She has not trialed any Benadryl. This predominantly on the left torso and back but also on the right and spreading to the left upper thigh. She is overall well-appearing, nontoxic, afebrile, low suspicion this is secondary to any viral or bacterial illness. No recent vaccinations. she has no angioedema, airways patent, speaking clear full sentences, LSCTA, no GI symptoms, abdominal examination is benign. Vitals are stable. Differential Diagnosis Differential Diagnoses: The differential diagnosis associated with the presentation includes ( Urticaria, atopic dermatitis, contact dermatitis, drug eruption, ) Admission/Observation Consideration of admission/observation: Escalation of care including admission/observation considered ( No angioedema, stable for discharge) Independent Historian Clinical information obtained from an independent historian. History obtained from or confirmed by: Spouse Prescription Management I considered prescription management with: Other ( antihistamine, glucocorticoid) Discharge Plan Discharge Clinical Impression: Urticaria Patient Disposition: Home, Self-Care Instructions: Urticaria (ED) Additional Instructions: take the allergy pill daily. Take the prednisone, which is a steroid, as instructed take it with food to prevent stomach upset. The cream sent to the pharmacy please apply a small amount and spread throughout to the areas where the rash is present, this should not be applied to the face nor to the genital region. Contact your primary care provider to arrange for further follow-up. Should this continue to happen, you may consider having allergy/ immunology testing. You may return back to emergency department any new or worsening symptoms or concerns, if you develop difficulty breathing, shortness of breath, please return back for further evaluation. Prescriptions: New cetirizine 10 mg tablet 10 mg PO DAILY PRN (Reason: angioedema) Qty: 10 0RF prednisone 10 mg tablet 10 mg PO DIRECTED Qty: 19 0RF Rx Instructions: see taper instructions: Take 40 mg (4 tablets) daily x2 days, then 30 mg (3 tablets) daily x2 days, then 20mg (2 tablets) daily x2 days, then 10mg (1 tablet) daily x 2 days fluocinolone 0.025 % cream 1 appl topical BID Qty: 60 0RF No Action cefuroxime axetil 500 mg tablet 500 mg PO BID Qty: 20 0RF doxycycline hyclate 100 mg tablet 100 mg PO BID Qty: 20 0RF metronidazole 500 mg tablet 500 mg PO BID 7 Days Qty: 14 0RF fluconazole [Diflucan] 150 mg tablet 150 mg PO Q3D Qty: 2 0RF Rx Instructions: may repeat second dose 72 hrs after first dose if symptoms persist Referrals: Ale Alvarez MD [Primary Care Provider] -
== END 2023-01-31 18:40 | disposition home or self-care (01) ==
PROVIDERS: Emergency Provider Student in an Organized Health Care Education/Training Program; PCP Internal Medicine
DX: R21 Rash and other nonspecific skin eruption (principal)
CPT/HCPCS: 99282; 99283

== ENCOUNTER 2023-04-17 16:47 | Emergency (ER) | payer MEDICAID, SELFPAY ==
[2023-04-17 16:57] VITALS: BP 105/59; PULSE 74; RESP 14; O2SAT 99; BMI 20.5
--- NOTE | 2023-04-17 16:57 | ED_ITS ---
HPI - Skin/Abscess/Foreign Bdy General Chief complaint: Skin/Abscess/Foreign Body Stated complaint: Cyst on face under birthmark - referred by [facility] Time Seen by Provider: 04/17/23 17:37 Source: patient, RN notes reviewed and old records reviewed Mode of arrival: ambulatory History of Present Illness HPI narrative: 27-year-old female with no significant past medical history presenting to the ED complaining of recurrent cyst/abscess to right side of face beneath birthmark x 1 week. Admits went to urgent care 1 week ago, was prescribed doxycycline which she has been taking without relief. Reports continued/growing area. Denies drainage, fever/chills Related Data Previous Rx's Medication Instructions Recorded cefuroxime axetil 500 mg tablet 500 mg PO BID #20 tabs 03/22/22 doxycycline hyclate 100 mg tablet 100 mg PO BID #20 tabs 03/22/22 fluconazole 150 mg tablet 150 mg PO Q3D 2 doses #2 tabs 03/24/22 (Diflucan) metronidazole 500 mg tablet 500 mg PO BID 7 days #14 tabs 03/24/22 cetirizine 10 mg tablet 10 mg PO DAILY PRN angioedema #10 01/31/23 tabs fluocinolone 0.025 % topical cream 1 appl topical BID #60 grams 01/31/23 prednisone 10 mg tablet 10 mg PO DIRECTED #19 tabs 01/31/23 doxycycline hyclate 100 mg tablet 100 mg PO BID 3 days #6 tabs 04/17/23 Allergies Allergy/AdvReac Type Severity Reaction Status Date / Time No Known Allergies Allergy Verified 03/21/22 19:45 [No Known Allergies*] Review of Systems Review of Systems: Constitutional: No Fever, No Chills ENT/Mouth: No Ear Pain, No Nasal Congestion, No sore throat, No Rhinorrhea, No Swallowing Difficulty Cardiovascular: No Chest Pain, No SOB Respiratory: No Cough, No Sputum, No Wheezing Gastrointestinal: No Nausea, No Vomiting, No Diarrhea, No Constipation, No Abdominal pain Musculoskeletal: No joint pain, No Myalgias, No Joint Swelling Skin: +Skin Lesions, No rash Neuro: No Weakness Yes all other systems are reviewed and are negative Constitutional: Constitutional: Reports as per [facility] Past Medical History Attestation statement: The following information was validated with the patient. Source: old records reviewed Social History Social History Alcohol intake: current Alcohol intake frequency: holidays/special occasions only Advance Directives: No Advance Directives Information Provided: No Physical Exam Vital Signs: Vital Signs: Last Vital Signs Pulse 74 04/17/23 16:57 Resp 14 04/17/23 16:57 BP 105/59 L 04/17/23 16:57 Pulse Ox 99 04/17/23 16:57 O2 Del Method Room Air 04/17/23 16:57 BMI result Body Mass Index 20.5 Const: General: cooperative, healthy appearing and no acute distress Orientation/consciousness: patient oriented x3 Limitations: no limitations HEENT: Other: + indurated abscess/cyst beneath birthma rk to right temporal region. No fluctuance/induration. Slight overlying erythema. Nontender Head: Yes normal to inspection and Yes atraumatic Ears: hearing grossly normal bilaterally General nose exam: Normal external nose present Face and sinus: Yes normal facial exam Eyes: General: appearance normal, both eyes and all related structures EOM: EOMs intact bilaterally Neck: Neck: Yes normal visual inspection and Yes no meningeal signs Resp: Effort & Inspection: normal respiratory effort and no respiratory distress Cardio: Rate: regular rate Skin: Rashes: no rashes Wounds: no wounds Neuro: General: patient oriented x3, tone normal and no meningeal signs Cranial nerves: Yes CN's II-XII intact bilaterally Gait exam (Neuro): Normal gait present Extrem: General: Yes normal to inspection Course Course Course Narrative: This is an RME: Additional HPI, ROS, PE not included below will be deferred to primary provider. Patient is a 27-year-old female who presents to the emergency department for evaluation of a cyst to her face under her birthmark, she was referred from urgent care to the ED for incision and drainage. She had a course of antibiotics and warm compresses. Small abscess to right temporal region Medical Decision Making Medical Decision Making MDM Narrative: 27-year-old female with no significant past medical history presenting to the ED complaining of recurrent cyst/abscess to right side of face beneath birthmark x 1 week. On exam vital signs stable, NAD, nontoxic appearing, physical exam as noted above. Concern for cyst versus abscess with faint cellulitis. Area lanced with 18 gauge needle with pus/bloody drainage expressed Discussed with patient to continue previously prescribed doxycycline, states she has about 2-3 days left, will prescribe total of 10 day course, and recommended dermatology follow-up Please refer to course for remaining clinical decision making, interpretation of labs/imaging results, and discussions with consultants and/or family members. Results discussed with patient including worrisome signs and symptoms and strict return precautions, and when to return to the emergency department. They verbalized understanding and feel safe for discharge at this time. Differential Diagnosis Differential Diagnoses: The differential diagnosis associated with the presentation includes As above External Record Review External record reviewed: Inpatient record, Office record, Outpatient record, Prior outpatient labs, Prior outpatient radiology, Primary care record and Outside ED record Tests considered The following testing was considered but not selected: As above Prescription Management I considered prescription management with: Pain Medication and Antibiotic Procedures Abscess I/D Site: face Side (if applicable): right Technique: needle aspiration Sent for culture/gram staining?: No Irrigation: No Packing used?: none Discharge Plan Discharge Clinical Impression: Abscess of skin or subcutaneous tissue Patient Disposition: Home, Self-Care Instructions: Abscess (ED), Abscess Follow-up (ED) Additional Instructions: Continue taking previously prescribed antibiotic, in addition or antibiotics to complete a 10 day course of doxycycline was sent to the emergency department Continue to do warm compresses at home Follow-up with Dermatology If area persist or worsen, pain becomes unbearable, you have continued drainage or fever return to the ED Prescriptions: New doxycycline hyclate 100 mg tablet 100 mg PO BID 3 Days Qty: 6 0RF No Action cefuroxime axetil 500 mg tablet 500 mg PO BID Qty: 20 0RF doxycycline hyclate 100 mg tablet 100 mg PO BID Qty: 20 0RF metronidazole 500 mg tablet 500 mg PO BID 7 Days Qty: 14 0RF fluconazole [Diflucan] 150 mg tablet 150 mg PO Q3D Qty: 2 0RF Rx Instructions: may repeat second dose 72 hrs after first dose if symptoms persist cetirizine 10 mg tablet 10 mg PO DAILY PRN (Reason: angioedema) Qty: 10 0RF prednisone 10 mg tablet 10 mg PO DIRECTED Qty: 19 0RF Rx Instructions: see taper instructions: Take 40 mg (4 tablets) daily x2 days, then 30 mg (3 tablets) daily x2 days, then 20mg (2 tablets) daily x2 days, then 10mg (1 tablet) daily x 2 days fluocinolone 0.025 % cream 1 appl topical BID Qty: 60 0RF Referrals: [facility] [Outside] Interventions: ED Discharge Assessment Last Done: 04/17/23 18:30 Discharge Date/Time: 04/17/23 18:30
== END 2023-04-17 18:30 | disposition home or self-care (01) ==
PROVIDERS: Emergency Provider Emergency Medicine Emergency Medical Services; PCP Internal Medicine
DX: L02.01 Cutaneous abscess of face (principal)
CPT/HCPCS: 10060; 99282; 99284

== ENCOUNTER 2023-09-03 17:55 | Outpatient (REF) | payer MEDICAID, SELFPAY ==
[2023-09-04 03:35] LABS: CT PCR NOT DETECTED (Not Detect.); NG PCR NOT DETECTED (Not Detect.)
[2023-09-04 10:31] LABS: Bacterial Vaginosis PCR POSITIVE (Negative); Candida Group PCR NOT DETECTED (Not Detect); Candida glab krusei PCR NOT DETECTED (Not Detect); Trichomonas vaginalis PCR NOT DETECTED (Not Detect)
== END 2023-09-03 17:56 | disposition home or self-care (01) ==
LOC: HO.HHCLNP 17:55
PROVIDERS: Visit Provider Internal Medicine
DX: R30.0 Dysuria (principal)
CPT/HCPCS: 0352U; 0353U; 87086; 87088; 87186

== ENCOUNTER 2023-10-27 11:28 | Outpatient (REF) | payer MEDICAID, SELFPAY ==
[2023-10-27 14:11] LABS: TSH reflex Free T4 2.13 uIU/mL (0.32-4.0)
[2023-10-28 07:34] LABS: HBS Num1 2.33 mIU/mL (0-7.99); HBsAGNum1 0.23 S/CO (0.00-0.99); HIV AB/AG Nonreactive (Nonreactive); Hepatitis B Core Antibody Nonreactive (Nonreactive); Hepatitis B Surface Antigen Negative (Negative); ~HepC Num1 0.19 S/CO (0.00-0.79); ~Hepatitis B Surface Antibody NONREACTIVE (Nonreactive); ~Hepatitis C Antibody Nonreactive (Nonreactive)
[2023-10-28 07:36] LABS: Syphilis Screen Nonreactive (Nonreactive)
== END 2023-10-27 11:29 | disposition home or self-care (01) ==
LOC: HO.HHCL 11:28
PROVIDERS: Visit Provider Advanced Practice Midwife
DX: Z11.3 Encounter for screening for infections with a predominantly sexual mode of transmission (principal); N92.0 Excessive and frequent menstruation with regular cycle
CPT/HCPCS: 36415; 84443; 86704; 86706; 86780; 86803; 87340; 87389

== ENCOUNTER 2023-10-27 17:19 | Outpatient (REF) | payer MEDICAID, SELFPAY ==
[2023-10-29 14:53] LABS: HPV mRNA E6/E7 Not Detected (Not Detected)
== END 2023-10-27 17:20 | disposition home or self-care (01) ==
LOC: HO.HHCLNP 17:19
PROVIDERS: Visit Provider Advanced Practice Midwife
DX: Z12.4 Encounter for screening for malignant neoplasm of cervix (principal)
CPT/HCPCS: 36415; 84443; 86704; 86706; 86780; 86803; 87340; 87389; 87624; 88175

== ENCOUNTER 2023-11-27 10:39 | Outpatient (REF) | payer MEDICAID, SELFPAY ==
--- NOTE | ~2023-11-27 | US_ITS ---
EXAMINATION: US PELVIS CLINICAL INFORMATION: Menorrhagia COMPARISON: None available. TECHNIQUE: Ultrasound of the pelvis is performed using both transabdominal and transvaginal transducers along with Doppler. Transvaginal imaging is performed due to inadequate visualization transabdominally. FINDINGS: Uterus: The uterus is anteverted and retroflexed and measures 8.3 x 4.0 x 4.7 cm. The double wall endometrial thickness is 0.7 mm. The uterus is smooth in contour and has normal myometrial echogenicity. No visible fibroid. Adnexa: Both ovaries are visualized. There is normal color flow to the adnexa. There is no ovarian torsion. There is no pelvic ascites or fluid collection. Right ovary measures 2.7 x 1.2 x 1.7 cm. Left ovary measures 3.8 x 2.0 x 2.5 cm. Within the left ovary, there is a 1.5 cm well-defined echogenic focus. US/US pelvic and transvaginal IMPRESSION: 1.5 cm well-defined echogenic focus in the left ovary may be a dermoid. Consider follow-up ultrasound in 6-12 weeks. Electronically signed by: Adri Salazar MD 11/28/2023 04:54 PM EDT
== END 2023-11-27 10:40 | disposition home or self-care (01) ==
LOC: HO.US 10:39
PROVIDERS: PCP Internal Medicine; Visit Provider Advanced Practice Midwife
DX: N92.0 Excessive and frequent menstruation with regular cycle (principal)
CPT/HCPCS: 76830; 76856

== ENCOUNTER 2024-01-28 10:59 | Outpatient (REF) | payer MEDICAID, SELFPAY | END 2024-01-28 11:00 | disposition home or self-care (01) | LOC: HO.US 10:59 | PROVIDERS: PCP Internal Medicine; Visit Provider Advanced Practice Midwife | DX: N83.202 Unspecified ovarian cyst, left side (principal) | CPT/HCPCS: 76830; 76856 ==

== ENCOUNTER → 2024-01-28 11:01 | Outpatient (BNV) | payer MEDICAID, SELFPAY | PROVIDERS: PCP Internal Medicine; Visit Provider Radiology Diagnostic Radiology | DX: N83.202 Unspecified ovarian cyst, left side (principal) | CPT/HCPCS: 76830; 76856 ==